=== PATIENT | female | born 1975 | race American Indian/Alaskan Native ===

== ENCOUNTER 2016-07-26 10:16 | Outpatient (CLI) | payer BC ==
--- NOTE | 2016-07-26 13:12 | Mammography Report ---
Screening mammogram: The patient had this exam on the above date . It was indicated to us that previous films should be available that would be helpful in providing optimal evaluation with regards to the current study. A final report will be issued, pending receipt of the prior study. CAD was utilized. BI-RADS CATEGORY: 0 = Needs additional imaging evaluation ACR BI-RADS MAMMOGRAPHIC CODES: 0 = Needs additional imaging evaluation; 1 = Negative; 2 = Benign; 3 = Probably benign; 4 = Suspicious; 5 = Malignant; 6 = Known biopsy-proven malignancy COMMENT: 1. Dense breast tissue, i.e., adenosis, fibrocystic changes, etc., may obscure an underlying neoplasm. 2. Approximately 10% of cancers are not detected with mammography. 3. A negative mammography report should not delay biopsy if a clinically suspicious mass is present.
== END 2016-07-26 10:17 | disposition home or self-care (01) ==
LOC: SPVWC 10:16
PROVIDERS: ATTEND Obstetrics & Gynecology
DX: Z12.31 Encounter for screening mammogram for malignant neoplasm of breast (principal)
CPT/HCPCS: 77067; G0202

== ENCOUNTER 2016-09-11 15:27 | Outpatient (CLI) | payer BC ==
--- NOTE | 2016-09-11 16:22 | Mammography Report ---
bilateral DIGITAL DIAGNOSTIC MAMMOGRAM : 09/11/16 15:27:00 CLINICAL: Recalled for bilateral asymmetries. COMPARISON:07/26/16 screening FINDINGS: Bilateral true lateral and spot compression MLO and CC views and repeat bilateral CC views were performed. Satisfactory effacement of the previously described asymmetry on the spot views. Lateral and repeat CC views are negative. IMPRESSION: Negative Mammogram. BI-RADS CATEGORY: 1 -- Negative RECOMMENDATION: Routine mammographic screening in one year. ACR BI-RADS MAMMOGRAPHIC CODES: 0 = Needs additional imaging evaluation; 1 = Negative; 2 = Benign; 3 = Probably benign; 4 = Suspicious; 5 = Malignant; 6 = Known biopsy-proven malignancy COMMENT: 1. Dense breast tissue, i.e., adenosis, fibrocystic changes, etc., may obscure an underlying neoplasm. 2. Approximately 10% of cancers are not detected with mammography. 3. A negative mammography report should not delay biopsy if a clinically suspicious mass is present. COMMENT: Patient follow-up letters are generated via our [employer] application.
== END 2016-09-11 15:28 | disposition home or self-care (01) ==
LOC: SPVWC 15:27
PROVIDERS: ATTEND Obstetrics & Gynecology
DX: R92.8 Other abnormal and inconclusive findings on diagnostic imaging of breast (principal)
CPT/HCPCS: 77066; G0204

== ENCOUNTER 2019-05-10 11:19 | Outpatient (CLI) | payer BC ==
--- NOTE | 2019-05-10 15:36 | Mammography Report ---
DIGITAL SCREENING MAMMOGRAM WITH CAD, 05/10/2019 INDICATION: Routine screening mammography. TECHNIQUE: Digital bilateral 2D mammography was obtained in the craniocaudal and mediolateral obliq ue projections. This examination was interpreted with the benefit of Computer-Aided Detection analysi s. COMPARISON: 09/11/2016 and 07/26/2016 FINDINGS: Breast Density: The breasts are heterogeneously dense, which may obscure small masses. There is no evidence of dominant mass, suspicious calcifications or architectural distortion in eithe r breast. IMPRESSION: No mammographic evidence of malignancy. Follow up recommendation: Routine yearly BI-RADS Category 1: Negative. A "normal" or negative report should not discourage follow up or biopsy of a clinically significant f inding. A written summary of these findings will be mailed to the patient. The patient will be entered into a mammography reporting system which will generate a reminder letter for the patient's next appointmen t at the appropriate interval. The [employer] recommends yearly mammograms starting at age 40 and continuing as l mary as a woman is in good health. Breast MRI is recommended for women with an approximate 20-25% or greater lifetime risk of breast cancer, including women with a strong family history of breast or ova john cancer or who have been treated for Hodgkin's disease. Signer Name: Faisal Kebede MD Signed: 05/10/2019 3:32 PM Workstation Name: [id number]
== END 2019-05-10 11:20 | disposition home or self-care (01) ==
LOC: SPVWC 11:19
PROVIDERS: ATTEND Family Medicine
DX: Z12.31 Encounter for screening mammogram for malignant neoplasm of breast (principal)
CPT/HCPCS: 77067

== ENCOUNTER 2020-02-02 08:16 | Outpatient (CLI) | payer BC ==
--- NOTE | 2020-02-02 11:00 | Mammography Report ---
BILATERAL DIGITAL DIAGNOSTIC MAMMOGRAM WITH CAD -- 02/02/2020 BILATERAL COMPLETE BREAST ULTRASOUND INDICATION: Patient presents for evaluation of bilateral clear nipple discharge. TECHNIQUE: Digital bilateral mammographic imaging was performed. Magnification views were obtained. Complete ultrasound of all four (4) quadrants was performed. This examination was interpreted with mor joseph benefit of Computer-Aided Detection (CAD) analysis. COMPARISON: Prior mammogram 05/10/2019 and 09/11/2016 FINDINGS: Breast Density: The breasts are heterogeneously dense, which may obscure small masses. MAMMOGRAPHIC FINDINGS: There is no evidence of dominant mass, suspicious calcifications or architectu ral distortion in either breast. There has been no significant change compared with the prior examina tions. There is no mammographic abnormality to account for bilateral nipple discharge, therefore bila teral ultrasound subsequently performed. ULTRASOUND FINDINGS: Complete sonographic evaluation of all 4 quadrants and retroareolar region was p erformed. Right breast: Mild benign duct ectasia is noted in the subareolar right breast. No intraductal mass o r debris identified. There is no suspicious sonographic abnormality identified within the right breas t. Left breast: Mild benign duct ectasia is noted in the subareolar left breast. No intraductal mass or debris identified. There is no suspicious sonographic abnormality identified within the left breast. IMPRESSION: 1. Mild benign duct ectasia is noted in the subareolar region of both breasts. No intraductal mass or debris identified. There is no suspicious mammographic or sonographic abnormality identified in eith er breast. Follow up recommendation: Routine yearly BI-RADS Category 2: Benign. A "normal" or negative report should not discourage follow up or biopsy of a clinically significant f inding. A written summary of these findings will be mailed to the patient. The patient will be entered into a mammography reporting system which will generate a reminder letter for the patient's next appointmen t at the appropriate interval. According to the [employer], yearly mammograms are recommended starting at age 40 and continuing as long as a woman is in good health. Breast MRI is recommended for women with an jay roximately 20-25% or greater lifetime risk of breast cancer, including women with a strong family his tory of breast or ovarian cancer and women who have been treated for Hodgkin's disease. Signer Name: Kary Kramer MD Signed: 02/02/2020 10:54 AM Workstation Name: [id number]
== END 2020-02-02 08:17 | disposition home or self-care (01) ==
LOC: SPVWC 08:16
PROVIDERS: ATTEND Obstetrics & Gynecology
DX: N60.41 Mammary duct ectasia of right breast (principal); N60.42 Mammary duct ectasia of left breast; N64.52 Nipple discharge
CPT/HCPCS: 77066

== ENCOUNTER 2021-10-31 10:54 | Outpatient (CLI) | payer BC, OTHER ==
--- NOTE | 2021-11-02 09:18 | Mammography Report ---
DIGITAL SCREENING MAMMOGRAM WITH TOMOSYNTHESIS, 10/31/2021 CLINICAL INFORMATION / INDICATION: Routine Screening Mammography. TECHNIQUE: Digital bilateral 2D and 3D mammography with tomosynthesis was obtained in the craniocaud al and mediolateral oblique projections. COMPARISON: 02/02/2020, 05/10/2019 FINDINGS: Breast Density: The breasts are heterogeneously dense, which may obscure small masses. No dominant mass, suspicious calcifications, or architectural distortion in either breast. There has been no significant interval change. IMPRESSION: No mammographic evidence of malignancy. Follow up recommendation: Routine yearly screening mammogram. BI-RADS Category 1: NEGATIVE A "normal" or negative report should not discourage follow up or biopsy of a clinically significant f inding. A written summary of these findings will be mailed to the patient. The patient will be entered into a mammography reporting system which will generate a reminder letter for the patient's next appointmen t at the appropriate interval. The [employer] recommends yearly mammograms starting at age 40 and continuing as l mary as a woman is in good health. Breast MRI is recommended for women with an approximate 20-25% or greater lifetime risk of breast cancer, including women with a strong family history of breast or ova john cancer or who have been treated for Hodgkin's disease. Signer Name: Sam Grant MD Signed: 11/02/2021 9:13 AM Workstation Name: [id number]
== END 2021-10-31 10:55 | disposition home or self-care (01) ==
LOC: SPVWC 10:54
PROVIDERS: ATTEND Obstetrics & Gynecology
DX: Z12.31 Encounter for screening mammogram for malignant neoplasm of breast (principal)
CPT/HCPCS: 77063; 77067